=== PATIENT | female | born 1990 | race Asian ===

== ENCOUNTER 2022-07-05 14:47 | Observation (INO) | payer MEDICAID ==
[~2022-07-05] VITALS: Ht 167.6 cm; Wt 98.9 kg
[2022-07-05] MEDS ORDERED: PREN-55 MT (15:23)
[2022-07-05] MEDS ORDERED: ONDANSETRON HCL 4MG/2ML INJ IV SCH (15:45)
[2022-07-05] MEDS ORDERED: LACTATED RINGERS 1,000 ML IV SCH (16:00)
[2022-07-05 16:38] LABS: BASOPHILS % 0.7 % (0.0-2.0); EOSINOPHILS % 1.9 % (0.0-5.0); HEMATOCRIT. 32.8 % (36.0-48.0); HEMOGLOBIN. 11.6 g/dL (12.0-16.0); LYMPHOCYTES % 16.7 % (20.0-50.0); MEAN CORPUSCULAR HEMOGLOBIN 31.8 pg (28.0-32.0); MEAN CORPUSCULAR VOLUME 89.9 fL (81.0-99.0); MEAN PLATELET VOLUME 7.8 fl (7.4-10.4); MONOCYTES % 5.3 % (2.0-8.0); NEUTROPHILS % 75.4 % (40.0-76.0); PLATELET 386 x1000/uL (130-400); RED BLOOD CELL COUNT 3.65 mill/uL (4.2-5.4); RED CELL DISTRIBUTION WIDTH 12.4 % (11.6-14.6)
[2022-07-05 16:43] LABS: CLARITY URINE CLOUDY (CLEAR); COLOR URINE YELLOW (YELLOW); KETONES URINE NEGATIVE (NEGATIVE); LEUKOCYTE ESTERASE URINE 3+ (NEGATIVE); NITRITE URINE NEGATIVE (NEGATIVE); OCCULT BLOOD URINE NEGATIVE (NEGATIVE); PH URINE 6.5 (4.5-8.0); PROTEIN URINE NEGATIVE (NEGATIVE); SPECIFIC GRAVITY URINE 1.003 (1.005-1.030); UROBILINOGEN URINE 0.2 E.U./dL (0.2-1.0)
== END 2022-07-05 17:38 | disposition home or self-care (01) ==
LOC: 8 EST LDRP 14:47 → 8 EST A/PP 16:08
PROVIDERS: ADMIT Obstetrics & Gynecology; ATTEND Obstetrics & Gynecology
DX: O26.892 Other specified pregnancy related conditions, second trimester (principal); R10.30 Lower abdominal pain, unspecified; O21.2 Late vomiting of pregnancy; O23.42 Unspecified infection of urinary tract in pregnancy, second trimester; Z3A.26 26 weeks gestation of pregnancy
CPT/HCPCS: 36415; 59025; 76805; 81003; 85025; 87077; 87086; 96361; 96374; G0378; J2405; 96360; 99281; J7120

== ENCOUNTER 2022-09-14 16:38 | Observation (INO) | payer MEDICAID ==
[~2022-09-14] VITALS: Ht 165.1 cm; Wt 98.4 kg
[~2022-09-14 16:38] MED LIST: PREN-55 MT
[2022-09-14] MEDS ORDERED: TERBUTALINE SULFATE 1MG/ML VIAL SUBCUT PRN (17:45)
[2022-09-14] MEDS ORDERED: LACTATED RINGERS 1,000 ML IV SCH (17:45)
== END 2022-09-14 18:45 | disposition home or self-care (01) ==
LOC: 8 EST LDRP 16:38
PROVIDERS: ADMIT Specialist; ATTEND Specialist
DX: O26.893 Other specified pregnancy related conditions, third trimester (principal); R10.9 Unspecified abdominal pain; N89.8 Other specified noninflammatory disorders of vagina; O62.9 Abnormality of forces of labor, unspecified; Z3A.36 36 weeks gestation of pregnancy; Z98.891 History of uterine scar from previous surgery
CPT/HCPCS: 59025; 96360; 96372; G0378; J3105; 99281

== ENCOUNTER 2022-09-24 18:00 | Observation (INO) | payer MEDICAID ==
[~2022-09-24] VITALS: Ht 165.1 cm; Wt 100.7 kg
== END 2022-09-24 20:30 | disposition home or self-care (01) ==
LOC: 8 EST LDRP 18:00
PROVIDERS: ADMIT Specialist; ATTEND Specialist
DX: O36.8130 Decreased fetal movements, third trimester, not applicable or unspecified (principal); Z3A.37 37 weeks gestation of pregnancy
CPT/HCPCS: 59025; 76805; 76818; G0378; 99281

== ENCOUNTER 2022-09-27 13:50 | Inpatient (IN) | payer MEDICAID ==
[~2022-09-27] VITALS: Ht 165.1 cm; Wt 100.7 kg
[2022-10-08] MEDS ORDERED: RHO(D) IMMUNE GLOBULIN 300 MCG/SYR IM ONE ×2 (13:15)
[2022-10-08] MEDS ORDERED: NALOXONE HCL 0.4 MG/ML 1ML VIAL IM PRN (13:15)
[2022-10-08] MEDS ORDERED: CARBOPROST TROMETHAMINE 250 MCG/ML AMPUL IM PRN (13:15)
[2022-10-08] MEDS ORDERED: METHYLERGONOVINE MALEATE 0.2 MG/ML IM PRN (13:15)
[2022-10-08 14:18] LABS: CLARITY URINE CLOUDY (CLEAR); COLOR URINE DARK YELLOW (YELLOW); KETONES URINE TRACE (NEGATIVE); LEUKOCYTE ESTERASE URINE 3+ (NEGATIVE); NITRITE URINE NEGATIVE (NEGATIVE); OCCULT BLOOD URINE 2+ (NEGATIVE); PROTEIN URINE 1+ (NEGATIVE); SPECIFIC GRAVITY URINE 1.031 (1.005-1.030)
[2022-10-08 14:21] LABS: BASOPHILS % 0.4 % (0.0-2.0); HEMATOCRIT. 37.7 % (36.0-48.0); HEMOGLOBIN. 12.9 g/dL (12.0-16.0); LYMPHOCYTES % 13.2 % (20.0-50.0); MEAN CORPUSCULAR HEMOGLOBIN 30.5 pg (28.0-32.0); MEAN CORPUSCULAR VOLUME 89.1 fL (81.0-99.0); MEAN PLATELET VOLUME 8.3 fl (7.4-10.4); MONOCYTES % 7.1 % (2.0-8.0); NEUTROPHILS % 77.3 % (40.0-76.0); PLATELET 387 x1000/uL (130-400); RED BLOOD CELL COUNT 4.23 mill/uL (4.2-5.4); RED CELL DISTRIBUTION WIDTH 12.9 % (11.6-14.6)
[2022-10-08 14:23] LABS: CHLORIDE 108 mEq/L (98-107)
[2022-10-08 14:26] LABS: INR 0.9; PARTIAL THROMBOPLASTIN TIME 28.4 sec (23.4-31.0); PROTHROMBIN TIME 9.6 sec (9.6-11.0)
[2022-10-08 15:03] LABS: HEPATITIS B SURFACE ANTIGEN NEGATIVE
[2022-10-08 15:08] LABS: *AMPHETAMINES SCREEN URINE NEGATIVE (NEGATIVE); *BARBITURATES SCREEN URINE NEGATIVE (NEGATIVE); *BENZODIAZEPINES SCREEN URINE NEGATIVE (NEGATIVE); *COCAINE SCREEN URINE NEGATIVE (NEGATIVE); CANNABINOID URINE SCREEN PRESUMTIVE POSITIVE (NEGATIVE); METHADONE URINE SCREEN NEGATIVE (NEGATIVE); OPIATES URINE SCREEN NEGATIVE (NEGATIVE); PHENCYCLIDINE URINE SCREEN NEGATIVE (NEGATIVE)
[2022-10-08] MEDS ORDERED: MORPHINE SULFATE/PF 1MG/ML 10ML AMP ONE (15:40)
[2022-10-08] MEDS ORDERED: MIDAZOLAM HCL 2 MG/2 ML VIAL ONE (17:05)
[2022-10-08] MEDS ORDERED: DEXAMETHASONE 4MG/ML 1ML VIAL ONE (17:06)
[2022-10-08] MEDS ORDERED: KETOROLAC 60MG/2ML VIAL IM ONE (17:06)
[2022-10-08] MEDS ORDERED: ONDANSETRON HCL 4MG/2ML INJ ONE (17:06)
[2022-10-08] MEDS ORDERED: CEFAZOLIN SODIUM 1000MG/VIAL ONE (17:07)
[2022-10-08] MEDS ORDERED: NALOXONE HCL 0.4 MG/ML 1ML VIAL IV PRN (17:15)
[2022-10-08] MEDS ORDERED: MORPHINE SULFATE 10 MG/ML CPJ IV PRN (17:15)
[2022-10-08] MEDS ORDERED: FENTANYL CITRATE/PF 50MCG/ML 2ML VIAL IV PRN (17:15)
[2022-10-08] MEDS ORDERED: HEMORRHOIDAL SUPP PR PRN (17:45)
[2022-10-08] MEDS ORDERED: RHO(D) IMMUNE GLOBULIN 300 MCG/SYR IM PRN (17:45)
[2022-10-08] MEDS ORDERED: IBUPROFEN 400MG TABLET PO PRN (17:45)
[2022-10-08] MEDS ORDERED: OXYTOCIN 30 UNITS/500ML NS PMX 500 ML IV SCH (17:45)
[2022-10-08] MEDS ORDERED: ACETAMINOPHEN WITH CODEINE 300/30MG TABLET PO PRN (17:45)
[2022-10-08] MEDS ORDERED: BISACODYL 10MG SUPP PR PRN (17:45)
[2022-10-08] MEDS ORDERED: DIPHENHYDRAMINE 25MG CAPSULE PO PRN (17:45)
[2022-10-08] MEDS ORDERED: LANOLIN OINT 7GM TUBE TOP PRN (17:45)
[2022-10-08] MEDS ORDERED: ONDANSETRON HCL 4MG/2ML INJ IV PRN (17:45)
[2022-10-08] MEDS: LACTATED RINGERS 1,000 ML IV SCH ×2 (17:55→17:56)
[2022-10-08] MEDS: OXYTOCIN 30 UNITS/500ML NS PMX 500 ML IV SCH ×2 (18:02→23:19)
[2022-10-08 20:25] VITALS: BP 97/58
[2022-10-08 20:55] VITALS: BP 109/64
[2022-10-08] MEDS: MAGNESIUM/ALUMINUM HYDROXIDE/SIMETHICONE 30ML UDC PO SCH (21:00)
[2022-10-08] MEDS ORDERED: DOCUSATE SODIUM 100MG CAPSULE PO SCH (21:00)
[2022-10-08 21:25] VITALS: BP 108/70
[2022-10-09] VITALS (7 sets, daily range): BP systolic 73–107; BP diastolic 34–54
[2022-10-09] MEDS: KETOROLAC 30MG/ML VIAL IV PRN ×2 (00:02→05:49)
[2022-10-09] MEDS: LACTATED RINGERS 1,000 ML IV SCH ×2 (04:47→04:50)
[2022-10-09] MEDS: MAGNESIUM/ALUMINUM HYDROXIDE/SIMETHICONE 30ML UDC PO SCH ×3 (07:30→21:43)
[2022-10-09] MEDS ORDERED: PRENATAL VIT/FE FUMARATE/FA TABLET PO SCH (09:00)
[2022-10-09] MEDS: FERROUS SULFATE 325MG TABLET PO SCH ×2 (09:32→17:35)
[2022-10-09] MEDS: SIMETHICONE 80MG TABLET CHEW PO SCH ×3 (09:33→21:43)
[2022-10-09 10:22] LABS: BASOPHILS % 0.2 % (0.0-2.0); EOSINOPHILS % 1.2 % (0.0-5.0); HEMATOCRIT. 32.4 % (36.0-48.0); HEMOGLOBIN. 11.1 g/dL (12.0-16.0); LYMPHOCYTES % 13.8 % (20.0-50.0); MEAN CORPUSCULAR HEMOGLOBIN 30.7 pg (28.0-32.0); MEAN CORPUSCULAR VOLUME 89.7 fL (81.0-99.0); MEAN PLATELET VOLUME 7.8 fl (7.4-10.4); MONOCYTES % 7.1 % (2.0-8.0); NEUTROPHILS % 77.7 % (40.0-76.0); PLATELET 315 x1000/uL (130-400); RED BLOOD CELL COUNT 3.61 mill/uL (4.2-5.4)
[2022-10-09] MEDS: IBUPROFEN 800MG TABLET PO PRN ×2 (17:36→23:27)
[2022-10-10 04:00] VITALS: BP 131/70
[2022-10-10 08:00] VITALS: BP 124/75
[2022-10-10] MEDS ORDERED: IBUP-2030 MT (15:08)
[2022-10-17 13:06] LABS: CANNABINOID CONFIRMATION URINE Positive (.)
== END 2022-10-10 13:50 | disposition home or self-care (01) | DRG 540 ==
LOC: 8 EST LDRP 10-08 12:17 → OBSVTOIN 10-08 12:17 → 8 EST A/PP 10-08 12:23 → 8 EST LDRP 10-08 12:25 → 8EST 10-08 20:17
PROVIDERS: ADMIT Obstetrics & Gynecology; ATTEND Obstetrics & Gynecology
PROC: 10D00Z1 Extraction of Products of Conception, Low, Open Approach (ICD-10-PCS; principal; 2022-10-08)
DX: O34.211 Maternal care for low transverse scar from previous cesarean delivery (principal); O48.0 Post-term pregnancy; Z20.822 Contact with and (suspected) exposure to COVID-19; Z37.0 Single live birth; Z3A.40 40 weeks gestation of pregnancy
CPT/HCPCS: 36415; 80053; 80305; 80349; 81003; 85025; 86592; 86703; 86762; 86850; 86900; 87340; 87426; 88307; J0690; J1100; J1885; J2250; J2274; J2405; A4315; J2590